=== PATIENT | male | born 1975 | race Caucasian/White ===

== ENCOUNTER 2017-02-15 10:33 | Emergency (ER) | payer OTHER ==
[~2017-02-15] VITALS: Ht 175.2 cm; Wt 140.6 kg
[~2017-02-15 10:33] MED LIST: AMBIEN10 M1 PO; PRILOSEC20 MG PO
[2017-02-15] MEDS ORDERED: CYCLOBENZAPRINE10 MG PO (13:19)
[2017-02-15] MEDS ORDERED: Motrin,Rufen800 MG PO (13:19)
== END 2017-02-15 13:12 | disposition home or self-care (01) ==
LOC: ED 10:33
DX: F07.81 Postconcussional syndrome (principal); V49.9XXA Car occupant (driver) (passenger) injured in unspecified traffic accident, initial encounter; Y93.89 Activity, other specified; Y92.413 State road as the place of occurrence of the external cause; Y99.9 Unspecified external cause status

== ENCOUNTER 2019-07-18 22:47 | Emergency (ER) | payer OTHER ==
[~2019-07-18] VITALS: Ht 165.1 cm; Wt 127.0 kg
[~2019-07-18 22:47] MED LIST changes: +CYCLOBENZAPRINE10 MG PO; +Motrin,Rufen800 MG PO; +NORCO 5-325 TA1 EACH PO
[2019-07-19] MEDS ORDERED: CYCLOBENZAPRINE5 M3 PO (01:54)
== END 2019-07-19 02:00 | disposition home or self-care (01) ==
LOC: ED 22:47
DX: S22.42XA Multiple fractures of ribs, left side, initial encounter for closed fracture (principal); X58.XXXA Exposure to other specified factors, initial encounter; Y93.89 Activity, other specified; Y92.89 Other specified places as the place of occurrence of the external cause; Y99.8 Other external cause status

== ENCOUNTER → 2023-06-15 | Outpatient (CLI) | payer BC, OTHER ==
[~2023-06-15] MED LIST changes: +CYCLOBENZAPRINE5 M3 PO
== END | disposition home or self-care (01) ==
LOC: US 03:00
PROVIDERS: ATTEND Internal Medicine
DX: M79.661 Pain in right lower leg (principal); M79.662 Pain in left lower leg; R60.0 Localized edema

== ENCOUNTER 2024-09-15 15:10 | Emergency (ER) | payer BC, OTHER ==
[~2024-09-15] VITALS: Ht 167.6 cm; Wt 106.6 kg
[2024-09-15] MEDS ORDERED: LEVOTHYROXINE25 MCG PO (15:20)
[2024-09-15] MEDS ORDERED: MOUNJARO12.5 MG/01 SQ (15:20)
[2024-09-15] MEDS ORDERED: SEROQUEL100 MG PO (15:21)
[2024-09-15] MEDS ORDERED: NEXIUM 24HR20 M1 PO (15:21)
[2024-09-15 15:52] LABS: BASO # 0.1 10*3/uL (0.0-0.1); BASO % 0.6 % (0.0-1.0); EOS # 0.2 10*3/uL (0.0-0.4); EOS % 2.9 % (1.0-4.0); HEMATOCRIT 47.2 % (42.0-52.0); LYMPH # 1.4 10*3/uL (1.3-4.4); LYMPH % 16.9 % (27.0-41.0); MEAN CELL VOLUME 90.8 fl (80.0-94.0); MEAN CORPUSCULAR HGB CONC 33.1 g/dl (33.0-37.0); MEAN PLATELET VOLUME 8.5 fl (9.6-12.3); MONO # 0.5 10*3/uL (0.1-1.0); MONO % 5.7 % (3.0-9.0); NEUT # 5.9 10*3/uL (2.3-7.9); NEUT % 73.7 % (47.0-73.0); PLATELET COUNT AUTOMATED 294 10*3/uL (130-400); RED CELL DISTRI WIDTH 14.2 % (0-14.5); WHITE BLOOD COUNT 8.1 10*3/uL (4.8-10.8)
[2024-09-15] MEDS ORDERED: IOHEXOL 300 MG/ML 100 ML VIAL IV ONE (16:05)
[2024-09-15 16:09] LABS: ALKALINE PHOSPHATASE 48 U/L (46-116); BUN 13 mg/dl (9-23); CHLORIDE 107 mmol/L (98-107); LIPASE 29 U/L (12-53); POTASSIUM 4.2 mmol/L (3.4-5.1); SGPT/ALT 81 U/L (5-49); TOTAL PROTEIN 6.9 gm/dL (6.0-8.0)
[2024-09-15] MEDS ORDERED: HYDROmorphONE Hydrochloride 0.5 MG/0.5 ML SYRINGE IV ONE (16:35)
[2024-09-15] MEDS ORDERED: Ondansetron Hydrochloride 4 MG/2 ML VIAL IV ONE (16:35)
[2024-09-15] MEDS ORDERED: IOHEXOL 9 MG/ML (IODINE) ORAL SOLUTION PO ONE (16:40)
[2024-09-15] MEDS ORDERED: SODIUM CHLORIDE 0.9% 1,000 ML IV ONE (18:15)
[2024-09-15] MEDS ORDERED: HYDROmorphONE Hydrochloride 1 MG/ML SYR IV ONE (18:15)
== END 2024-09-15 19:32 | disposition home or self-care (01) ==
LOC: ED 15:10
PROVIDERS: Nurse Practitioner Family
DX: K43.6 Other and unspecified ventral hernia with obstruction, without gangrene (principal); Z79.899 Other long term (current) drug therapy

== ENCOUNTER → 2024-10-01 | Day surgery (SDC) | payer BC, OTHER ==
[~2024-10-01] VITALS: Ht 167.6 cm; Wt 104.3 kg
[~2024-10-01] MED LIST changes: +ACETAMINOPHEN 100 ML IV ONE; +BUPIVACAINE 0.5% 30 ML IV ONE; +COLACE100 MG PO; +Dexamethasone Sodium Phospha 4 MG/ML VIAL IV ONE; +HYDROmorphONE Hydrochloride 0.5 MG/0.5 ML SYRINGE IV PRN; +LEVOTHYROXINE25 MCG PO; +Lactated Ringer's Solution 1,000 ML IV ONE; +Lidocaine Hydrochloride 2% 5 ML SDV IV ONE; +MOUNJARO12.5 MG/01 SQ; +Midazolam Hydrochloride 2 MG/2 ML VIAL IV ONE; +NEXIUM 24HR20 M1 PO; +Ondansetron Hydrochloride 4 MG/2 ML VIAL IV ONE; +PERCOCET 5-3251 EACH PO; +PROPOFOL 200 MG/20 ML VIAL IV ONE; +ROCURONIUM BROMIDE 50 MG/5 ML SYRINGE IV ONE; +SEROQUEL100 MG PO; +SEVOFLURANE 250 ML BOT INH ONE; +SUGAMMADEX SODIUM 200 MG/2 ML VIAL IV ONE; +ceFAZolin sodium/sodium chlor 20 ML IV ONE; +fentaNYL CITRATE 100 MCG/2 ML VIAL IV ONE
[2024-10-01 09:15] VITALS: BP 122/71
[2024-10-01 11:40] VITALS: BP 142/58
[2024-10-01 11:55] VITALS: BP 121/65
[2024-10-01 12:10] VITALS: BP 108/52
[2024-10-01 12:25] VITALS: BP 115/38
[2024-10-01 12:40] VITALS: BP 131/49
== END | disposition home or self-care (01) ==
LOC: SDC 09-27 10:15
PROVIDERS: ATTEND Surgery
DX: K42.9 Umbilical hernia without obstruction or gangrene (principal); M79.89 Other specified soft tissue disorders; E03.9 Hypothyroidism, unspecified; K21.9 Gastro-esophageal reflux disease without esophagitis; G47.30 Sleep apnea, unspecified; F10.90 Alcohol use, unspecified, uncomplicated; E66.9 Obesity, unspecified; Z68.37 Body mass index [BMI] 37.0-37.9, adult; Z79.890 Hormone replacement therapy; Z79.899 Other long term (current) drug therapy